=== PATIENT | male | born 2000 | race Two or more races ===

== ENCOUNTER 2025-05-30 20:06 | Emergency (ER) | payer MEDICAID, OTHER ==
[~2025-05-30] VITALS: Ht 172.7 cm; Wt 82.0 kg
--- NOTE | 2025-05-30 21:06 | DVH ---
XY CHEST TWO VIEWS ROUTINE CLINICAL HISTORY: cough/sob COMPARISON: None TECHNIQUE: Frontal and lateral view of the chest was obtained FINDINGS: Lines and Tubes: None Lungs: No focal consolidation. Pleura: No effusion. No pneumothorax. Cardiomediastinal contours: Unremarkable Bones: No acute osseous abnormality. IMPRESSION: No acute cardiopulmonary disease.
[2025-05-30 22:27] VITALS: BP 127/71; PULSE 62; RESP 14; TEMP 98.1; O2SAT 96
--- NOTE | 2025-05-30 22:27 | ED.PDOC ---
SOB-HPI HPI Comments 25-year-old male presents to the ED chief complaint cough. Patient states two days ago he has not sudden onset of nonstop cough for 30 minutes with rib pain. Reports history of GERD. Denies any fevers, chills, shortness breath, difficulty breathing, or known injury. Chief Complaint: Cough Time Seen by MD: 20:12 Reviewed notes: Nurses Notes, Medications, Allergies Mode of Arrival: Ambulatory Past Medical History PAST MEDICAL HISTORY: Denies Surgical History: Denies all surgeries Family History Family History: Reviewed,noncontributory to illness Social History Smoker: Non-Smoker Alcohol: Denies ETOH Use Drugs: Denies Drug Use All Other Systems: Reviewed and Negative (see hpi) Physical Exam General Appearance: No Apparent Distress, Normal HEENT: Normal ENT Inspection, Pharynx Normal, TMs Normal Neck: Full Range of Motion, Non-Tender, Normal, Normal Inspection Respiratory: Chest Non-Tender, Lungs Clear, No Accessory Muscle Use, No Respiratory Distress, Normal Breath Sounds Cardiovascular: No Edema, No JVD, No Murmur, No Gallop, Normal Peripheral Pulses, Regular Rate/Rhythm Breast Exam: Deferred Gastrointestinal: No Organomegaly, Non Tender, No Pulsatile Mass, Normal Bowel Sounds, Soft Genitalia: Deferred Pelvic: Deferred Rectal: Deferred Extremities: No calf tenderness, Normal capillary refill, Normal inspection, Normal range of motion, Non-tender, No pedal edema Musculoskeletal : Apperance: Normal Neurologic: Alert, reservations sales agent II-XII nml as Tested, No Motor Deficits, Normal Affect, Normal Mood, No Sensory Deficits Cerebellar Function: Normal Reflexes: Normal Skin: Dry, Normal Color, Warm Lymphatic: No Adenopathy Was a procedure done? Was a procedure done?: No Differential Dx Differential Diagnosis: Anxiety, Asthma, Bronchitis, Pneumonia, Pneumothorax X-Ray, Labs, Meds, VS Vital Signs Date Time Temp Pulse Resp B/P (MAP) Pulse Ox O2 Delivery O2 Flow Rate FiO2 05/30/25 22:27 62 14 96 Room Air 05/30/25 22:27 98.1 62 14 127/71 (89) 96 98.1 05/30/25 20:20 98.2 95 18 136/75 99 98.2 Current Medications Medications (Trade) Dose Ordered Sig/Lavon Route Start Time Stop Time Status Last Admin Famotidine (Pepcid Tablet) 40 mg ONCE ONCE PO 05/30/25 22:30 05/30/25 22:31 DC 05/30/25 22:41 X-Ray, Labs, Meds, VS Comment Chest x-ray shows no acute pulmonary findings. Likely secondary to GERD. Script trial of Pepcid. Patient agrees with discharge plan of care advised to follow up with her PCP in 2-3 days if no improvement ER return precautions given patient indicates understanding agrees with discharge plan of care Time of 1ST Reevaluation: 20:12 Reevaluation 1ST: Unchanged Time of 2ND Reevaluation: 22:27 Reevaluation 2ND: Improved Patient Education/Counseling: Diagnosis, Treatment, Prognosis, Need For Follow Up Family Education/Counseling: No Family Present SEPSIS Sepsis Screen Date sepsis recognized/suspect: May 30, 2025 Time Sepsis recognized/suspect: 2023 Recent Procedure: No On Antibiotic Therapy: No Respiratory Rate >20: No Heart Rate >90: No Temp<36 C (96.8 F) or >38.3 C: No SBP <90 or MAP <65 mmHG: No New Acute Mental Status Change: No Is the patient on CPAP, BIPAP,: No Physician Orders Chest Two Views Routine (05/30/25 20:35) Vital Signs Date Time Temp Pulse Resp B/P (MAP) Pulse Ox O2 Delivery O2 Flow Rate FiO2 05/30/25 22:27 62 14 96 Room Air 05/30/25 22:27 98.1 62 14 127/71 (89) 96 98.1 05/30/25 20:20 98.2 95 18 136/75 99 98.2 Medications Medications Dose Ordered Sig/Alvon Route Start Time Stop Time Status Last Admin Dose Admin Famotidine 40 mg ONCE ONCE PO 05/30/25 22:30 05/30/25 22:31 DC 05/30/25 22:41 Departure 1 Departure Time of Disposition: 22:27 Impression: Primary Impression: GERD (gastroesophageal reflux disease) Qualified Codes: K21.9 - Gastro-esophageal reflux disease without esophagitis Disposition: HOME / SELF CARE / HOMELESS Condition: Stable e-Prescriptions Famotidine (PEPCID TABLET) 20 Mg Tb 1 TAB PO BID for 10 Days, #20 TAB Prov: TONI HARDY SALLY 05/30/25 Discharged With: Self Critical Care Note Critical Care Time?: No Stability Stability form required: No Heart Score Heart Score: Heart Score Response (Comments) Value History N/A 0 EKG N/A 0 Age <45 0 Risk Factors N/A 0 Troponin N/A 0 Total 0 [facility] May 30, 2025 22:27
[2025-05-30] MEDS: FAMOTIDINE 20 MG TAB PO ONE (22:41)
[2025-05-30] MEDS ORDERED: FAMO20TA10 PO (22:44)
== END 2025-05-30 22:54 | disposition home or self-care (01) ==
LOC: ER 20:06 → EDBD 20:06 → ER 22:54
DX: K21.9 Gastro-esophageal reflux disease without esophagitis (principal)
CPT/HCPCS: 71046